=== PATIENT | female | born 1935 | race Caucasian/White ===

== ENCOUNTER → 2016-11-16 | Outpatient (CLI) | payer OTHER ==
[~2016-11-16] MED LIST: ALBUTEROL2.5 MG/0.5 INH; ALBUTEROL2.5 MG/32 IH; AMOX TR-K CLV1 EAC4 PO; ASPIR 8181 M1 PO; ASPIRIN325 PO; ATIVAN0.5 MG PO; ATIVAN1 MG PO; ATORVASTATIN CA40 MG PO; B12INJ; CALCIUM OYSTER500 MG OR; CELEXA20 MG PO; CITRATE OF MAG296 ML PO; COLACE100 MG PO; EVISTA OR; FLOVENT DISKUS50 MCG IH; FLOVENT HFA 4444 MCG; GABAPENTIN 100100 MG PO; HORMONE REPLACEMENT; KEPPRA 500 MG500 M1 OR; LIPITOR10 MG PO; LORTAB 7.5/5001 TA3 OR; LORTAB 7.5/5001 TA3 PO; MEDROLDOSEPACK PO; MIRALAX17 GM PO; MIRTAZAPINE15 M2; MULTIVITAMINS1 EAC7 PO; NEURONTIN 300M300 M2 PO; OMNICEF250 MG/5 M PO; PANTOPRAZOLE SO40 M1; PHENERGAN25 M2 RE; PLAVIX 75 MG TA75 M1 PO; PREDNISONE 10 M10 M1 PO; PROAIR HFA8.5 GM IH; PROAIR HFA8.5 GM INH; PROAIR RESPICL90 MCG INH; PROLIA60 MG/1 ML SQ; PROVENTIL INH; REMERON15 MG PO; SYMBICORT160 MCG/4. INH; TOPROL XL25 MG PO; TYLENOL325 MG PO; VALIUM5 MG PO; VITAMIN B-12100 MC1 OR; VITAMIN B-121000 MCG PO; VITAMIN C 250250 MG OR; VITAMIN C120 GM; VITAMIN C500 M1 PO; VITAMIN D1000 UNI1 PO; VITAMIN D400 UNI1 OR; WELLBUTRIN SR150 MG PO; XANAX 0.5 MG0.5 MG PO; ZOFRAN ODT4 MG PO; ZOFRAN ODT4 MG SUBLING
== END ==
LOC: RAD 13:07
DX: R10.9 Unspecified abdominal pain (principal)

== ENCOUNTER → 2016-11-21 | Outpatient (CLI) | payer OTHER | LOC: RAD 13:20 | DX: Z12.31 Encounter for screening mammogram for malignant neoplasm of breast (principal) ==

== ENCOUNTER 2016-12-26 21:34 | Emergency (ER) | payer OTHER ==
[~2016-12-26] VITALS: Ht 177.8 cm; Wt 60.3 kg
--- NOTE | ~2016-12-26 | EKG ---
[place] [address] [address] [place] [address] ELECTROCARDIOGRAM REPORT Name: RADHAAdamaBARBARA C Room #: [facility]#: [id number] Admission: 12/26/16 Attend Phys: Discharge: 12/27/16 Date of : 33 Report #: [id number] THIS REPORT FOR: //name// [facility] ED Test Date: 2016-12-26 Test Time: 21:40:01 Pat Name: BARBARA VAUGHAN Department: Room: Gender: F Psychological Operations Specialist: [id number] : 1935 Requested By: Gian Moore Order Number: [id number] MD: Deny Callejas Measurements Intervals [place] Rate: 83 P: MA: QRS: 69 QRSD: 91 T: 51 QT: 386 QTc: 454 Interpretive Statements Atrial fibrillation Borderline ST depression, diffuse leads Compared to ECG 02/04/2016 07:23:12 Atrial fibrillation is replaced sinus rhythm Electronically Signed On 12-27-2016 9:54:21 CDT by Deny Callejas [email or web address] <ELECTRONICALLY SIGNED> By: Deny Callejas MD, [facility] 12/27/16 0954 D: 09/2139 39 Deny Callejas MD, FACC /EPI
[2016-12-26 22:15] LABS: ABSOLUTE NEUTROPHILS 6.9 thou/uL (1.4-8.2); BASOPHILS 0.5 % (0.0-2.0); EOSINOPHILS 1.3 % (0.0-3.0); HEMATOCRIT 41.6 % (37.0-47.0); MCHC 33.7 g/dL (28.0-37.0); MCV 89.1 fL (80.0-100.0); MONOCYTES 4.7 % (1.0-8.0); PLATELET COUNT 185 thou/uL (150-400); POLYS 74.5 % (36.0-66.0); RBC 4.67 mil/uL (4.20-5.00); RDW 14.4 % (10.5-14.5); WBC 9.3 thou/uL (4.0-11.0)
[2016-12-26 22:16] LABS: MANUAL DIFF NO
[2016-12-26] MEDS ORDERED: CELEXA40 MG PO (22:21)
[2016-12-26] MEDS ORDERED: ELIQUIS5 MG PO (22:26)
[2016-12-26 22:27] LABS: ANION GAP 13 mmol/L (7-16); BUN 16 mg/dL (7-18); CALCIUM 9.2 mg/dL (8.5-10.1); CHLORIDE 102 mmol/L (98-107); CO2 25 mmol/L (21-32); GLUCOSE 126 mg/dL (74-106); POTASSIUM 3.2 mmol/L (3.5-5.1); SODIUM 140 mmol/L (136-145)
[2016-12-26 22:33] LABS: ALBUMIN 4.1 g/dL (3.4-5.0); ALKALINE PHOSPHATASE 133 U/L (46-116); SGOT 20 U/L (15-37); SGPT 20 U/L (30-65); TOTAL BILIRUBIN 0.4 mg/dL (<0.1-1.0); TOTAL PROTEIN 7.2 g/dL (6.4-8.2); TROPONIN-I < 0.04 ng/mL (<0.04-0.07)
[2016-12-26 23:08] LABS: URINE BILIRUBIN NEGATIVE (Negative); URINE BLOOD NEGATIVE (Negative); URINE COLOR YELLOW; URINE GLUCOSE-RANDOM* NEGATIVE (Negative); URINE KETONES TRACE (Negative); URINE LEUKOCYTES-REFLEX NEGATIVE (Negative); URINE PROTEIN (DIPSTICK) NEGATIVE (Negative); URINE UROBILINOGEN 0.2 E.U./dl (0.2-1.0)
[2016-12-26 23:20] VITALS: BP 132/70
[2016-12-26] MEDS ORDERED: ZOFRAN ODT4 M1 PO (23:42)
== END 2016-12-27 | disposition home or self-care (01) ==
LOC: ER 21:34
PROVIDERS: Physician Assistant
DX: F41.9 Anxiety disorder, unspecified (principal); R10.13 Epigastric pain; R11.2 Nausea with vomiting, unspecified; F32.9 Major depressive disorder, single episode, unspecified; I48.91 Unspecified atrial fibrillation; I25.10 Atherosclerotic heart disease of native coronary artery without angina pectoris; E78.5 Hyperlipidemia, unspecified; Z90.89 Acquired absence of other organs; Z88.2 Allergy status to sulfonamides

== ENCOUNTER 2016-12-28 21:27 | Emergency (ER) | payer OTHER ==
[~2016-12-28] VITALS: Ht 177.8 cm; Wt 60.3 kg
[~2016-12-28 21:27] MED LIST changes: +CELEXA40 MG PO; +ELIQUIS5 MG PO; +ZOFRAN ODT4 M1 PO
[2016-12-28 22:36] LABS: ABSOLUTE NEUTROPHILS 4.7 thou/uL (1.4-8.2); BASOPHILS 0.7 % (0.0-2.0); EOSINOPHILS 0.9 % (0.0-3.0); HEMATOCRIT 43.3 % (37.0-47.0); HEMOGLOBIN 14.6 gm/dL (12.0-15.0); LYMPHOCYTES 20.9 % (24.0-44.0); MCH 29.9 pg (26.0-34.0); MCHC 33.6 g/dL (28.0-37.0); MCV 88.9 fL (80.0-100.0); MONOCYTES 7.2 % (1.0-8.0); PLATELET COUNT 184 thou/uL (150-400); POLYS 70.3 % (36.0-66.0); RBC 4.87 mil/uL (4.20-5.00); WBC 6.7 thou/uL (4.0-11.0)
[2016-12-28 22:41] LABS: MANUAL DIFF NO
[2016-12-28 22:49] LABS: CALCIUM 9.5 mg/dL (8.5-10.1); POTASSIUM 3.7 mmol/L (3.5-5.1)
[2016-12-28 22:55] LABS: ALBUMIN 4.2 g/dL (3.4-5.0); TOTAL BILIRUBIN 0.7 mg/dL (<0.1-1.0)
[2016-12-29 00:01] LABS: URINE BILIRUBIN NEGATIVE (Negative); URINE BLOOD TRACE (Negative); URINE COLOR YELLOW; URINE GLUCOSE-RANDOM* NEGATIVE (Negative); URINE KETONES 1+ (Negative); URINE LEUKOCYTES-REFLEX NEGATIVE (Negative); URINE PROTEIN (DIPSTICK) NEGATIVE (Negative); URINE UROBILINOGEN 0.2 E.U./dl (0.2-1.0)
[2016-12-29] MEDS ORDERED: NORCO 5-325 TA1 EACH PO (00:49)
[2016-12-29 01:12] VITALS: BP 141/64
[2016-12-31] MEDS ORDERED: NEXIUM40 MG PO (07:17)
[2016-12-31] MEDS ORDERED: PRAVACHOL20 MG PO (07:17)
[2016-12-31] MEDS ORDERED: MIRTAZAPINE45 MG PO (10:38)
== END 2016-12-29 01:13 | disposition home or self-care (01) ==
LOC: ER 21:27
PROVIDERS: Emergency Medicine
DX: K52.9 Noninfective gastroenteritis and colitis, unspecified (principal); F32.9 Major depressive disorder, single episode, unspecified; F41.9 Anxiety disorder, unspecified; E78.00 Pure hypercholesterolemia, unspecified; I25.10 Atherosclerotic heart disease of native coronary artery without angina pectoris; Z95.5 Presence of coronary angioplasty implant and graft; Z86.73 Personal history of transient ischemic attack (TIA), and cerebral infarction without residual deficits; Z98.890 Other specified postprocedural states; Z88.2 Allergy status to sulfonamides

== ENCOUNTER 2017-11-02 23:18 | Inpatient (IN) | payer OTHER ==
[~2017-11-02] VITALS: Ht 175.3 cm; Wt 62.1 kg
--- NOTE | ~2017-11-02 | HC ---
[facility] [place] [address] CONSULTATION Name: KWAMEBRADBARBARA Tatyana Room #: 457-P [facility] IN ..#: [id number] Admission: 11/03/17 Attend Phys: Rahul Hubbard Discharge: 11/03/17 Date of : 33 Report #: [id number] THIS REPORT FOR: //name// CC: Everardo Garcia MD [facility] Rahul Pacheco HISTORY OF PRESENT ILLNESS: The patient is an 81-year-old woman with a history of coronary artery disease with stenting in 2002 and then again in 2016, paroxysmal atrial fibrillation, hypertension, dyslipidemia, mild carotid disease. Her last stress study in 01/2017 was nonischemic with normal ejection fraction. She now presents with a sense of a racing or skipped heartbeat. This was worse while supine, seemed to be better while upright. Her atrial fibrillation in the past was clinically asymptomatic. She was seen in the Emergency Department and then admitted where telemetry monitoring demonstrated isolated, symptomatic atrial premature complexes reproducing her symptoms. This symptom has subsequently resolved. She has been under much more than usual stress with the of her brother and plans to travel to [place] this weekend. No fevers, chills, shortness of breath, heart failure symptoms, near syncope or syncope. MEDICATIONS: Include metoprolol 50 mg daily, alprazolam, Neurontin, apixaban 5 mg twice daily, rosuvastatin 20 mg daily, omeprazole, gabapentin. PAST MEDICAL HISTORY: Notable for back surgery, breast augmentation, coronary artery disease with stenting of the right coronary, hypertension, osteoporosis, subarachnoid hemorrhage in 2011 after a non-syncopal fall, conservative management. SOCIAL HISTORY: She is a nonsmoker, nondrinker. . FAMILY HISTORY: Unremarkable for premature coronary artery disease. REVIEW OF SYSTEMS: All systems negative except as that noted above. PHYSICAL EXAMINATION: GENERAL: A pleasant woman, in no distress. VITAL SIGNS: Blood pressure is 128/58, heart rate of 55 and regular, respirations unlabored at 18. HEENT: There is neither xanthelasma, subcutaneous xanthomata, oral mucosal or digital cyanosis or kyphoscoliosis present. CHEST: Clear to auscultation and percussion. CARDIAC: Regular rate and rhythm with normal S1, S2. No murmurs or rubs. ABDOMEN: Soft and nontender. EXTREMITIES: Without cyanosis, clubbing or edema. Radial pulses are 2+. NEUROLOGIC: She is alert with a nonfocal exam. [facility] [address] [place] [address] CONSULTATION Name: BARBARA VAUGHAN Room #: 457-P [facility]#: [id number] Admission: 11/03/17 Attend Phys: Rahul Hubbard Discharge: 11/03/17 Date of : 33 Report #: [id number] LABORATORY DATA: EKG demonstrates sinus rhythm with isolated atrial premature complexes. These have reproduced her presenting symptoms. Sodium 138, potassium 3.6, creatinine 1.2. Serial troponin levels are 0. ProBNP of 228. White count 6.1, hemoglobin 14, hematocrit 42, platelet count 154. Chest x-ray is normal. IMPRESSION: 1. Isolated, symptomatic atrial premature complexes. 2. Coronary artery disease with normal left ventricular systolic function, fairly recent nonischemic stress study. 3. Paroxysmal atrial fibrillation without recurrence. 4. Dyslipidemia. 5. Hypertension. 6. Bilateral carotid disease. RECOMMENDATIONS: 1. No change to pharmacologic regimen. 2. Avoidance of caffeine and srzn-alo-dljlutr stimulants. At this point, no additional suppressant therapy is needed. Reassurance was offered. I have discussed these issues with Vicenta in detail. Thank you for asking me to participate in her care. <ELECTRONICALLY SIGNED> By: Deny Callejas MD, FACC 11/05/17 1258 1057 1537 Deny Callejas MD, FACC /nt
--- NOTE | ~2017-11-02 | EKG ---
[place] [address] [facility] [place] [address] ELECTROCARDIOGRAM REPORT Name: BARBARA VAUGHAN Room #: 457-P ADM IN M.R.#: [id number] Admission: 11/03/17 Attend Phys: Rahul Hubbard Discharge: Date of : 33 Report #: [id number] THIS REPORT FOR: //name// [facility] ED Test Date: 2017-11-02 Test Time: 23:24:09 Pat Name: BARBARA VAUGHAN Department: Room: [facility] Gender: F Inspector Process: KO : 1935 Requested By: Paul Stack Order Number: [id number] MD: Deny Callejas Measurements Intervals [place] Rate: 62 P: 75 [place]: 181 QRS: 61 QRSD: 94 T: 58 QT: 414 QTc: 421 Interpretive Statements Sinus rhythm Atrial premature complex Anteroseptal infarct, age indeterminate Compared to ECG 12/31/2016 07:05:32 ST (T wave) deviation no longer present Electronically Signed On 11-03-2017 13:52:04 CDT by Deny Callejas [email or web address] <ELECTRONICALLY SIGNED> By: Deny Callejas MD, [facility] 11/03/17 1352 [id number] 2324 Deny Callejas MD, [facility] /EPI
--- NOTE | ~2017-11-02 | EKG ---
[place] [address] [facility] [place] [address] ELECTROCARDIOGRAM REPORT Name: BARBARA VAUGHAN Room #: 457- ADM IN M.R.#: [id number] Admission: 11/03/17 Attend Phys: Rahul Hubbard Discharge: Date of : 33 Report #: [id number] THIS REPORT FOR: //name// [facility] Test Date: 2017-11-03 Test Time: 08:13:51 Pat Name: BARBARA VAUGHAN Department: Room: [facility] Gender: F [employer] Cutter: LEFTY : 1935 Requested By: Stacey Granados Order Number: [id number] MD: Deny Callejas Measurements Intervals [place] Rate: 62 P: 79 [place]: 187 QRS: 53 QRSD: 92 T: 43 QT: 468 QTc: 476 Interpretive Statements Sinus rhythm Occasional supraventricular complexes Anteroseptal infarct, age indeterminate Compared to ECG 12/31/2016 07:05:32 No significant change was found Electronically Signed On 11-03-2017 13:55:54 CDT by Deny Callejas [email or web address] <ELECTRONICALLY SIGNED> By: Deny Callejas MD, [facility] 11/03/17 1355 0813 2 Deny Callejas MD, [facility] /EPI
[~2017-11-02 23:18] MED LIST changes: +MIRTAZAPINE45 MG PO; +NEXIUM40 MG PO; +NORCO 5-325 TA1 EACH PO; +PRAVACHOL20 MG PO
[2017-11-02 23:43] VITALS: BP 179/91
[2017-11-03 00:02] LABS: ABSOLUTE NEUTROPHILS 4.2 thou/uL (1.4-8.2); BASOPHILS 0.6 % (0.0-2.0); EOSINOPHILS 2.5 % (0.0-3.0); HEMATOCRIT 42.4 % (37.0-47.0); HEMOGLOBIN 14.4 gm/dL (12.0-15.0); LYMPHOCYTES 20.6 % (24.0-44.0); MCV 88.3 fL (80.0-100.0); MONOCYTES 6.9 % (1.0-8.0); PLATELET COUNT 154 thou/uL (150-400); POLYS 69.4 % (36.0-66.0); RDW 13.7 % (10.5-14.5); WBC 6.1 thou/uL (4.0-11.0)
[2017-11-03 00:10] LABS: ANION GAP 8 mmol/L (7-16); BUN 19 mg/dL (7-18); CALCIUM 9.2 mg/dL (8.5-10.1); CHLORIDE 104 mmol/L (98-107); CO2 26 mmol/L (21-32); CREATININE 1.2 mg/dL (0.6-1.0); GLUCOSE 121 mg/dL (74-106); POTASSIUM 3.6 mmol/L (3.5-5.1); SODIUM 138 mmol/L (136-145)
[2017-11-03 00:20] LABS: ALBUMIN 3.9 g/dL (3.4-5.0); SGOT 19 U/L (15-37); SGPT 21 U/L (30-65); TOTAL BILIRUBIN 0.5 mg/dL (<0.1-1.0); TOTAL PROTEIN 7.4 g/dL (6.4-8.2); TROPONIN-I <0.06 ng/mL (<0.06)
[2017-11-03 00:32] VITALS: BP 179/91
[2017-11-03] MEDS ORDERED: ELIQUIS5 MG PO (00:47)
[2017-11-03] MEDS ORDERED: CRESTOR20 MG PO (00:48)
[2017-11-03 01:20] VITALS: BP 165/77
[2017-11-03 01:38] VITALS: BP 153/70
[2017-11-03] MEDS ORDERED: METOPROLOL SUCC50 MG PO (03:39)
[2017-11-03 04:39] VITALS: BP 163/70
[2017-11-03 07:45] VITALS: BP 128/58
[2017-11-03 10:03] LABS: CHOLESTEROL 129 mg/dL (<200); HDL CHOLESTEROL 58 mg/dL (>40); LDL CHOLESTEROL 56 mg/dL (<100); TC:HDL 2.2 Ratio (Not establshd); TRIGLYCERIDE 75 mg/dL (<150); TROPONIN-I <0.06 ng/mL (<0.06); VLDL 15 mg/dL (<40)
[2017-11-03 12:19] VITALS: BP 128/58
[2017-11-04 02:05] LABS: GLYCOHEMOGLOBIN (HGB A1C) 5.6 % (4.8-5.6)
== END 2017-11-03 14:06 | disposition home or self-care (01) | DRG 313 ==
LOC: ER 23:18 → EROBS 11-03 00:32 → 4W 11-03 01:22
PROVIDERS: Emergency Medicine; Nurse Practitioner Acute Care
DX: R07.89 Other chest pain (principal); F32.9 Major depressive disorder, single episode, unspecified; F41.9 Anxiety disorder, unspecified; I25.10 Atherosclerotic heart disease of native coronary artery without angina pectoris; E78.5 Hyperlipidemia, unspecified; I10 Essential (primary) hypertension; M81.0 Age-related osteoporosis without current pathological fracture; I48.0 Paroxysmal atrial fibrillation; I65.23 Occlusion and stenosis of bilateral carotid arteries; G25.81 Restless legs syndrome; Z95.5 Presence of coronary angioplasty implant and graft; Z86.73 Personal history of transient ischemic attack (TIA), and cerebral infarction without residual deficits; Z88.2 Allergy status to sulfonamides; Z82.49 Family history of ischemic heart disease and other diseases of the circulatory system; Z80.51 Family history of malignant neoplasm of kidney
CPT/HCPCS: 10045

== ENCOUNTER → 2018-01-15 | Outpatient (CLI) | payer OTHER ==
[~2018-01-15] MED LIST changes: +CRESTOR20 MG PO; +METOPROLOL SUCC50 MG PO
== END ==
LOC: RAD 13:29
DX: Z12.31 Encounter for screening mammogram for malignant neoplasm of breast (principal)

== ENCOUNTER → 2019-08-26 | Outpatient (CLI) | payer OTHER | LOC: SJCVC 16:19 | DX: R94.31 Abnormal electrocardiogram [ECG] [EKG] (principal); I25.10 Atherosclerotic heart disease of native coronary artery without angina pectoris; I48.0 Paroxysmal atrial fibrillation; D68.59 Other primary thrombophilia; Z86.79 Personal history of other diseases of the circulatory system; Z79.899 Other long term (current) drug therapy ==

== ENCOUNTER → 2020-05-30 | Outpatient (CLI) | payer OTHER | LOC: SJCVCIMAG 08:59 | PROVIDERS: ATTEND Internal Medicine Cardiovascular Disease | DX: I48.91 Unspecified atrial fibrillation (principal); I25.10 Atherosclerotic heart disease of native coronary artery without angina pectoris; E78.5 Hyperlipidemia, unspecified; I10 Essential (primary) hypertension; Z98.61 Coronary angioplasty status ==

== ENCOUNTER → 2020-12-08 | Outpatient (CLI) | payer OTHER | LOC: SJCVCIMAG 10:11 | PROVIDERS: ATTEND Internal Medicine Cardiovascular Disease | DX: M79.661 Pain in right lower leg (principal); M79.89 Other specified soft tissue disorders ==

== ENCOUNTER → 2021-01-19 | Outpatient (CLI) | payer OTHER | LOC: SJCVC 14:38 | PROVIDERS: ATTEND Internal Medicine Cardiovascular Disease | DX: R94.31 Abnormal electrocardiogram [ECG] [EKG] (principal); I25.10 Atherosclerotic heart disease of native coronary artery without angina pectoris; I10 Essential (primary) hypertension; I48.0 Paroxysmal atrial fibrillation; E78.00 Pure hypercholesterolemia, unspecified; Z88.2 Allergy status to sulfonamides; Z98.61 Coronary angioplasty status; Z79.899 Other long term (current) drug therapy ==